=== PATIENT | female | born 1980 | race Caucasian/White ===

== ENCOUNTER 2017-04-04 15:33 | Emergency (ER) | payer BC ==
[~2017-04-04] VITALS: Ht 160 cm; Wt 70.3 kg
[2017-04-04] MEDS ORDERED: FLEXERIL10 MG PO (18:22)
[2017-04-04] MEDS ORDERED: MOTRIN600 MG PO (18:22)
[2017-04-04 18:33] VITALS: BP 114/83
== END 2017-04-04 18:34 | disposition home or self-care (01) ==
LOC: EME 15:33
DX: S16.1XXA Strain of muscle, fascia and tendon at neck level, initial encounter (principal); R51 Headache; V49.50XA Passenger injured in collision with unspecified motor vehicles in traffic accident, initial encounter; Y92.410 Unspecified street and highway as the place of occurrence of the external cause
CPT/HCPCS: 70450; 72125; 99281; 99284